=== PATIENT | male | born 1970 | race Caucasian/White ===

== ENCOUNTER 2019-04-21 09:18 | Emergency (ER) | payer SELFPAY ==
[~2019-04-21] VITALS: Ht 172.7 cm; Wt 117.8 kg
[~2019-04-21 09:18] MED LIST: DOXY100T20 PO; PROM5SYR2 PO
[2019-04-21 09:21] VITALS: BP 145/93; PULSE 120; RESP 18; Ht 172.7 cm; Wt 117.8 kg
[2019-04-21] MEDS ORDERED: ALBUTEROL 0.083% (NEB) 2.5 MG/3 ML AMP NEB STA (10:01)
[2019-04-21] MEDS ORDERED: IPRATROPIUM (NEB) 0.5 MG/2.5 ML AMP NEB STA (10:01)
[2019-04-21] MEDS ORDERED: DEXAMETHASONE 10 MG/ML 1 ML INJ PO ONE (10:30)
== END 2019-04-21 11:08 | disposition home or self-care (01) ==
LOC: FTE 09:18
DX: J18.9 Pneumonia, unspecified organism (principal)
CPT/HCPCS: 71045; 94664; 99283; J1100